=== PATIENT | female | born 1985 | race Caucasian/White ===

== ENCOUNTER → 2021-04-11 | Outpatient (CLI) | payer MEDICARE ==
[~2021-04-11] MED LIST: AZELASTINE137 MCG/0.; COLACE 100MG C100 MG PO; DIABETA 2.5 MG2.5 MG PO; LORTAB 5-325 M1 EACH PO; NASACORT16.9 ML; PERCOCET 5/325 T1 EA PO; PRENATAL VITAM1 EAC8 PO; PREVACID30 MG PO; XANAX0.25 MG PO
== END ==
LOC: KOH-I 08:08
DX: M25.552 Pain in left hip (principal); M25.551 Pain in right hip
CPT/HCPCS: 73522

== ENCOUNTER 2021-08-28 06:31 | Observation (INO) | payer MEDICARE ==
[~2021-08-28] VITALS: Ht 162.6 cm; Wt 98.9 kg
[2021-08-28 08:50] LABS: HEMOGLOBIN 13.4 gm/dl (12.3-15.3); RED BLOOD COUNT 4.31 M/UL (4.00-5.10); WHITE BLOOD COUNT 11.7 K/UL (4.5-11.0)
[2021-08-28 09:17] LABS: BUN/CREATININE RATIO 16 (0-10)
[2021-08-28] MEDS ORDERED: GLUCOPHAGE 500500 MG PO (13:03)
[2021-08-28] MEDS ORDERED: PROTONIX40 MG PO (13:03)
[2021-08-28] MEDS ORDERED: ESCITALOPRAM OX10 MG PO (13:03)
[2021-08-28] MEDS ORDERED: HUMIRA40 MG/0.4 SQ (13:04)
[2021-08-28] MEDS ORDERED: LEVOCETIRIZINE D5 MG PO (13:04)
== END 2021-08-28 17:28 | disposition home or self-care (01) ==
LOC: ER1 06:31 → CDU 14:11 → MED SURG 4 16:01
PROVIDERS: Student in an Organized Health Care Education/Training Program; ADMIT Surgery
DX: K80.12 Calculus of gallbladder with acute and chronic cholecystitis without obstruction (principal); E11.9 Type 2 diabetes mellitus without complications; K21.9 Gastro-esophageal reflux disease without esophagitis; G47.30 Sleep apnea, unspecified; F17.210 Nicotine dependence, cigarettes, uncomplicated; E66.01 Morbid (severe) obesity due to excess calories; Z98.890 Other specified postprocedural states; Z88.8 Allergy status to other drugs, medicaments and biological substances; Z79.84 Long term (current) use of oral hypoglycemic drugs; Z79.899 Other long term (current) drug therapy; Z20.822 Contact with and (suspected) exposure to COVID-19
CPT/HCPCS: 71045; 76705; 80053; 81001; 82550; 82553; 83690; 83874; 84484; 84702; 84703; 85025; 93005; 96374; 96375; 99285; C1729; G0378; J0690; J1100; J1170; J2001; J2250; J2270; J2405; J2704; J2710; J3010; J7030; J7120; Q9967; U0002

== ENCOUNTER 2022-01-31 00:59 | Emergency (ER) | payer OTHER ==
[~2022-01-31 00:59] MED LIST changes: +ESCITALOPRAM OX10 MG PO; +GLUCOPHAGE 500500 MG PO; +HUMIRA40 MG/0.4 SQ; +LEVOCETIRIZINE D5 MG PO; +PROTONIX40 MG PO
[2022-01-31 02:12] LABS: HEMOGLOBIN 13.1 gm/dl (12.3-15.3); RED BLOOD COUNT 4.13 M/UL (4.00-5.10); WHITE BLOOD COUNT 11.6 K/UL (4.5-11.0)
[2022-01-31 02:24] LABS: BUN/CREATININE RATIO 8 (0-10)
[2022-01-31] MEDS ORDERED: TORADOL 10 MG T10 MG PO (06:06)
[2022-01-31] MEDS ORDERED: PYRIDIUM200 MG PO (06:06)
[2022-01-31] MEDS ORDERED: ONDANSETRON ODT4 MG SL (06:06)
[2022-01-31] MEDS ORDERED: CEFUROXIME500 MG PO (06:06)
== END 2022-01-31 06:27 | disposition home or self-care (01) ==
LOC: ER1 00:59
PROVIDERS: Family Medicine
DX: N39.0 Urinary tract infection, site not specified (principal); E11.9 Type 2 diabetes mellitus without complications; F17.200 Nicotine dependence, unspecified, uncomplicated; Z88.8 Allergy status to other drugs, medicaments and biological substances
CPT/HCPCS: 80053; 81001; 83690; 84703; 85025; 96374; 96375; 99284; J1885; J2405; J7030; Q9967

== ENCOUNTER 2022-02-04 17:17 | Inpatient (IN) | payer OTHER ==
[~2022-02-04] VITALS: Ht 162.6 cm; Wt 99.4 kg
[~2022-02-04 17:17] MED LIST changes: +CEFUROXIME500 MG PO; +ONDANSETRON ODT4 MG SL; +PYRIDIUM200 MG PO; +TORADOL 10 MG T10 MG PO
[2022-02-04 21:45] LABS: HEMOGLOBIN 13.3 gm/dl (12.3-15.3); RED BLOOD COUNT 4.19 M/UL (4.00-5.10); WHITE BLOOD COUNT 9.5 K/UL (4.5-11.0)
[2022-02-04 22:07] LABS: BUN/CREATININE RATIO 8 (0-10)
[2022-02-05 04:39] LABS: HEMOGLOBIN 11.8 gm/dl (12.3-15.3)
[2022-02-05 04:43] LABS: RED BLOOD COUNT 3.76 M/UL (4.00-5.10); WHITE BLOOD COUNT 6.7 K/UL (4.5-11.0)
[2022-02-05 05:05] LABS: BUN/CREATININE RATIO 7 (0-10)
[2022-02-06] MEDS ORDERED: LEVOFLOXACIN500 MG PO (09:47)
[2022-02-08 05:09] LABS: CHLAMYDIA TRACHOMATIS, NAA Negative (Negative); NEISSERIA GONORRHOEAE, NAA Negative (Negative)
== END 2022-02-06 11:42 | disposition home or self-care (01) | DRG 690 ==
LOC: ER1 17:17 → CDU 23:34 → M/S 23:34
PROVIDERS: Physician Assistant; ADMIT Internal Medicine
DX: N10 Acute pyelonephritis (principal); Z20.822 Contact with and (suspected) exposure to COVID-19; E11.9 Type 2 diabetes mellitus without complications; F17.210 Nicotine dependence, cigarettes, uncomplicated; F43.10 Post-traumatic stress disorder, unspecified; L73.2 Hidradenitis suppurativa; K76.0 Fatty (change of) liver, not elsewhere classified; N83.202 Unspecified ovarian cyst, left side; E66.01 Morbid (severe) obesity due to excess calories; R32 Unspecified urinary incontinence; Z98.891 History of uterine scar from previous surgery; Z90.49 Acquired absence of other specified parts of digestive tract; Z83.3 Family history of diabetes mellitus; Z82.49 Family history of ischemic heart disease and other diseases of the circulatory system; Z97.5 Presence of (intrauterine) contraceptive device
CPT/HCPCS: 36415; 80048; 80053; 80307; 81001; 82550; 82553; 83605; 83690; 83735; 84100; 84132; 84439; 84443; 84484; 84703; 85025; 86140; 87040; 87077; 87086; 87186; 96374; 96375; 99285; J0696; J1650; J1885; J2270; J2405; J7030; Q9967

== ENCOUNTER → 2022-03-14 | Outpatient (CLI) | payer OTHER ==
[~2022-03-14] MED LIST changes: +LEVOFLOXACIN500 MG PO
== END ==
LOC: EXRD 09:16
DX: N20.0 Calculus of kidney (principal)
CPT/HCPCS: 74018

== ENCOUNTER → 2022-06-05 | Emergency (ER) | payer OTHER | END | disposition left against medical advice (07) | LOC: ER1 02:51 | DX: Z53.21 Procedure and treatment not carried out due to patient leaving prior to being seen by health care provider (principal) ==